=== PATIENT | male | born 1980 | race Caucasian/White ===

== ENCOUNTER 2017-12-23 12:24 | Emergency (ER) | payer SELFPAY ==
[2017-12-23 13:45] VITALS: BP 109/68
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
== END 2017-12-23 15:13 | disposition home or self-care (01) ==
LOC: UCEAST 12:24
DX: J06.9 Acute upper respiratory infection, unspecified (principal); Z88.0 Allergy status to penicillin
CPT/HCPCS: 87502; 99201; G0463